=== PATIENT | male | born 1960 | race Caucasian/White ===

== ENCOUNTER 2018-09-15 09:22 | Emergency (ER) | payer OTHER ==
[2018-09-15 09:49] LABS: Absolute Monocytes 0.8 K/uL (0.1-1.3); Absolute Neutrophil 5.2 K/uL (1.8-8.0); Basophils % 0.4 % (0-1.3); Eosinophils % 1.3 % (0-4.4); Hematocrit 42.7 % (39.6-49.0); Lymphocytes % 24.9 % (15.3-44.8); MPV 7.5 fL (7.6-11.3); Monocytes % 9.7 % (3.3-12.3); RBC Red Blood Cell Count 4.96 M/uL (4.33-5.43)
[2018-09-15] MEDS ORDERED: NA CHLORIDE 0.9% 1,000 ML ONE (09:51)
[2018-09-15 10:06] LABS: Albumin 3.9 g/dL (3.4-5.0); Bilirubin Direct 0.3 mg/dL (0-0.2); Bilirubin Total 1.6 mg/dL (0.2-1.0); Potassium 3.9 mmol/L (3.5-5.1); Protein, Total 7.2 g/dL (6.4-8.2)
--- NOTE | 2018-09-15 10:39 | EDPHYS ---
Physician Documentation [facility] Name: Jeff Ramos Age: 58 yrs Sex: Male : 1960 Arrival Date: 09/15/2018 Time: 09:24 Bed 13 Private MD: Kimberley Jenkins ED Physician Selwyn Grove HPI: 09/15 10:36 This 58 yrs old Male presents to ER via Ambulatory with complaints of kb Diarrhea. 10:36 The patient presents to the emergency department with diarrhea. Onset: The kb symptoms/episode began/occurred 6 day(s) ago. Possible causes: bad food exposure, Had an avocado prior to symptoms that no one else ate. The symptoms are aggravated by nothing. The symptoms are alleviated by nothing. Associated signs and symptoms: Pertinent positives: diarrhea, Pertinent negatives: abdominal pain, nausea, vomiting. Severity of symptoms: At their worst the symptoms were moderate in the emergency department the symptoms have improved moderately. The patient has not experienced similar symptoms in the past. The patient has not recently seen a physician. Pt reports abd cramping and diarrhea that started on Sunday. Cramping has gone away, but diarrhea persists. Denies fever, nausea or vomiting. Historical: - Allergies: 09:36 No Known Allergies; tw2 - Home Meds: 09:36 gabapentin oral oral [Active]; Prilosec Oral [Active]; atorvastatin oral oral [Active]; tw2 - PMHx: 09:36 Hyperlipidemia; tw2 - PSHx: 09:36 Appendectomy(2004); back surgery x2; ruptured appendix 2004; tw2 - Immunization history:: Adult Immunizations. - Social history:: Smoking status: . - Ebola Screening: : Patient denies travel to an Ebola-affected area in the 21 days before illness onset. ROS: 10:38 Constitutional: Negative for fever, chills, and weight loss, Cardiovascular: Negative kb for chest pain, palpitations, and edema, Respiratory: Negative for shortness of breath, cough, wheezing, and pleuritic chest pain, Back: Negative for injury and pain, : Negative for injury, bleeding, discharge, and swelling, MS/Extremity: Negative for injury and deformity, Skin: Negative for injury, rash, and discoloration, Neuro: Negative for headache, weakness, numbness, tingling, and seizure. 10:38 Abdomen/GI: Positive for diarrhea, abdominal cramps, Negative for abdominal pain, nausea and vomiting. Exam: 10:38 Constitutional: This is a well developed, well nourished patient who is awake, alert, kb and in no acute distress. Head/Face: Normocephalic, atraumatic. Neck: Trachea midline, no thyromegaly or masses palpated, and no cervical lymphadenopathy. Supple, full range of motion without nuchal rigidity, or vertebral point tenderness. No Meningismus. Chest/axilla: Normal chest wall appearance and motion. Nontender with no deformity. No lesions are appreciated. Cardiovascular: Regular rate and rhythm with a normal S1 and S2. No gallops, murmurs, or rubs. Normal PMI, no JVD. No pulse deficits. Respiratory: Lungs have equal breath sounds bilaterally, clear to auscultation and percussion. No rales, rhonchi or wheezes noted. No increased work of breathing, no retractions or nasal flaring. Abdomen/GI: Soft, non-tender, with normal bowel sounds. No distension or tympany. No guarding or rebound. No evidence of tenderness throughout. Skin: Warm, dry with normal turgor. Normal color with no rashes, no lesions, and no evidence of cellulitis. MS/ Extremity: Pulses equal, no cyanosis. Neurovascular intact. Full, normal range of motion. Neuro: Awake and alert, GCS 15, oriented to person, place, time, and situation. Cranial nerves II-XII grossly intact. Motor strength 5/5 in all extremities. Sensory grossly intact. Cerebellar exam normal. Normal gait. Vital Signs: 09:30 BP 116 / 98; Pulse 93; Resp 17; Temp 97.5(TE); Pulse Ox 97% on R/A; Weight 74.84 kg tw2 (R); Height 5 ft. 6 in. (167.64 cm) (R); Pain 0/10; 10:23 BP 116 / 98; Pulse 89; Resp 17; Pulse Ox 97% on R/A; tw2 11:09 BP 137 / 97; Pulse 81; Resp 17; Pulse Ox 99% on R/A; tw2 09:30 Body Mass Index 26.63 (74.84 kg, 167.64 cm) tw2 MDM: 09:26 Patient medically screened. kb 10:38 Data reviewed: vital signs, nurses notes. Data interpreted: Pulse oximetry: on room air kb is 97 %. Interpretation: normal. Counseling: I had a detailed discussion with the patient and/or guardian regarding: the historical points, exam findings, and any diagnostic results supporting the discharge/admit diagnosis, lab results, the need for outpatient follow up, a family practitioner, to return to the emergency department if symptoms worsen or persist or if there are any questions or concerns that arise at home. 09/15 09:30 Order name: Basic Metabolic Panel; Complete Time: 10:07 kb 09/15 09:30 Order name: CBC with Diff; Complete Time: 09:53 kb 09/15 09:30 Order name: Hepatic Function; Complete Time: 10: kb 09/15 09:30 Order name: Lipase; Complete Time: 10: kb 09/15 10:30 Order name: Stool Culture kb 09/15 09:30 Order name: IV Saline Lock; Complete Time: :43 kb 09/15 09:30 Order name: Labs collected and sent; Complete Time: :43 kb 09/15 10:30 Order name: CDIFF kb Administered Medications: 09:43 Drug: NS 0.9% 1000 ml Route: IV; Rate: 1000 ml; Site: left antecubital; tw2 11:00 Follow up: Response: No adverse reaction; IV Status: Completed infusion; IV Intake: tw2 1000ml Disposition: 09/16 09:34 Co-signature as Attending Physician, Selwyn Grove MD I agree with the assessment and magdiel plan of care. Disposition: 09/15/18 10:39 Discharged to Home. Impression: Diarrhea, unspecified. - Condition is Stable. - Discharge Instructions: Food Choices to Help Relieve Diarrhea, Adult, Diarrhea, Adult, [id number]. - Medication Reconciliation Form, Thank You Letter, Antibiotic Education, Prescription Opioid Use form. - Follow up: Emergency Department; When: As needed; Reason: Worsening of condition. Follow up: Kimberley Jenkins; When: 2 - 3 days; Reason: Recheck today's complaints, Continuance of care, Re-evaluation by your physician. Signatures: Dispatcher [employer] Esther Blankenship, Selwyn Cuellar MD MD cha Wise, Tara, RN RN tw2 Corrections: (The following items were deleted from the chart) 09/15 11:11 10:39 09/15/2018 10:39 Discharged to Home. Impression: Diarrhea, unspecified. Condition tw2 is Stable. Forms are Medication Reconciliation Form, Thank You Letter, Antibiotic Education, Prescription Opioid Use. Follow up: Emergency Department; When: As needed; Reason: Worsening of condition. Follow up: Kimberley Jenkins; When: 2 - 3 days; Reason: Recheck today's complaints, Continuance of care, Re-evaluation by your physician. kb
--- NOTE | 2018-09-15 10:39 | ER ---
Nurse's Notes [facility] Name: Jeff Ramos Age: 58 yrs Sex: Male : 1960 Arrival Date: 09/15/2018 Time: 09:24 Bed 13 Private MD: Kimberley Jenkins Diagnosis: Diarrhea, unspecified Presentation: 09/15 09:29 Presenting complaint: Patient states: starting Sunday with diarrhea and cramps, denies tw2 vomiting. Transition of care: patient was not received from another setting of care. Onset of symptoms was September 15, 2018. Risk Assessment: Do you want to hurt yourself or someone else? Patient reports no desire to harm self or others. Initial Sepsis Screen: Does the patient meet any 2 criteria? No. Patient's initial sepsis screen is negative. Does the patient have a suspected source of infection? No. Patient's initial sepsis screen is negative. Care prior to arrival: None. 09:29 Method Of Arrival: Ambulatory tw2 09:29 Acuity: EMPERATRIZ 3 tw2 Historical: - Allergies: 09:36 No Known Allergies; tw2 - Home Meds: 09:36 gabapentin oral oral [Active]; Prilosec Oral [Active]; atorvastatin oral oral [Active]; tw2 - PMHx: 09:36 Hyperlipidemia; tw2 - PSHx: 09:36 Appendectomy(2004); back surgery x2; ruptured appendix 2004; tw2 - Immunization history:: Adult Immunizations. - Social history:: Smoking status: . - Ebola Screening: : Patient denies travel to an Ebola-affected area in the 21 days before illness onset. Screenin:36 Abuse screen: Denies threats or abuse. Nutritional screening: No deficits noted. tw2 Tuberculosis screening: No symptoms or risk factors identified. Fall Risk None identified. Assessment: 09:36 General: Appears in no apparent distress. Behavior is calm, cooperative, appropriate tw2 for age. Pain: Complains of pain in abdomen. Neuro: Level of Consciousness is awake, alert, obeys commands, Oriented to person, place, time, situation. Cardiovascular: Heart tones S1 S2 Capillary refill < 3 seconds Patient's skin is warm and dry. Respiratory: Airway is patent Respiratory effort is even, unlabored, Respiratory pattern is regular, symmetrical, Breath sounds are clear bilaterally. GI: Abdomen is flat, Bowel sounds present X 4 quads. Reports cramping, diarrhea, Patient currently denies nausea, vomiting. : No signs and/or symptoms were reported regarding the genitourinary system. EENT: No signs and/or symptoms were reported regarding the EENT system. Derm: No signs and/or symptoms reported regarding the dermatologic system. Musculoskeletal: Range of motion: intact in all extremities. 10:23 Reassessment: Patient appears in no apparent distress at this time. No changes from tw2 previously documented assessment. Patient and/or family updated on plan of care and expected duration. Pain level reassessed. Patient is alert, oriented x 3, equal unlabored respirations, skin warm/dry/pink. 11:11 Reassessment: Patient appears in no apparent distress at this time. No changes from tw2 previously documented assessment. Patient and/or family updated on plan of care and expected duration. Pain level reassessed. Patient is alert, oriented x 3, equal unlabored respirations, skin warm/dry/pink. Vital Signs: 09:30 BP 116 / 98; Pulse 93; Resp 17; Temp 97.5(TE); Pulse Ox 97% on R/A; Weight 74.84 kg tw2 (R); Height 5 ft. 6 in. (167.64 cm) (R); Pain 0/10; 10:23 BP 116 / 98; Pulse 89; Resp 17; Pulse Ox 97% on R/A; tw2 11:09 BP 137 / 97; Pulse 81; Resp 17; Pulse Ox 99% on R/A; tw2 09:30 Body Mass Index 26.63 (74.84 kg, 167.64 cm) tw2 ED Course: 09:24 Patient arrived in ED. mr 09:25 Kimberley Jenkins is Private Physician. mr 09:26 Selwyn Grove MD is Attending Physician. magdiel 09:26 Esther Bentley [facility]-C [facility]. kb 09:29 Antonietta Chilel, SCOOBY is Primary Nurse. tw2 09:30 Triage completed. tw2 09:30 Arm band placed on. tw2 09:36 Bed in low position. Call light in reach. Pulse ox on. NIBP on. tw2 10:07 Initial lab(s) drawn, by me, sent to lab. Inserted saline lock: 22 gauge in left mh5 antecubital area, using aseptic technique. Blood collected. 10:39 Kimberley Jenikns is Referral Physician. kb 11:05 STOOL SAMPLE OBTAINED. 5 11:06 Ova And Parasites Sent. 5 11:06 Stool Culture Sent. 5 11:06 CDIFF Sent. 5 11:10 No provider procedures requiring assistance completed. IV discontinued, intact, tw2 bleeding controlled, No redness/swelling at site. Pressure dressing applied. Administered Medications: 09:43 Drug: NS 0.9% 1000 ml Route: IV; Rate: 1000 ml; Site: left antecubital; tw2 11:00 Follow up: Response: No adverse reaction; IV Status: Completed infusion; IV Intake: tw2 1000ml Intake: 11:00 IV: 1000ml; Total: 1000ml. tw2 Outcome: 10:39 Discharge ordered by . kb 11:11 Discharged to home ambulatory. tw2 11:11 Condition: stable 11:11 Discharge instructions given to patient, Instructed on discharge instructions, follow up and referral plans. Demonstrated understanding of instructions, follow-up care. 11:11 Patient left the ED. tw2 Signatures: Esther Bentley, WEIGHT AND TEST BAR CLERK-C WEIGHT AND TEST BAR CLERK-Ckb Selwyn Grove MD MD cha Rivera, Mary mr Antonietta Chilel, RN RN 2 Concetta Conley [facility]
[2018-09-15] MEDS ORDERED: DIPHENOX/ATROP SULF 1 TAB PO ONE (11:13)
== END 2018-09-15 11:11 | disposition home or self-care (01) ==
LOC: ER 09:22
DX: R19.7 Diarrhea, unspecified (principal); E78.5 Hyperlipidemia, unspecified
CPT/HCPCS: 36415; 80048; 80076; 83690; 85025; 87045; 87046; 87493; 96360; 99284; J7030